=== PATIENT | male | born 1955 ===

== ENCOUNTER 2021-04-08 08:30 | Inpatient (IN) | payer OTHER ==
[2021-04-08] MEDS ORDERED: TOPROL XL100 M1 (10:00)
[2021-04-08] MEDS ORDERED: GLIMEPIRIDE1 MG (10:01)
[2021-04-08] MEDS ORDERED: FAMOTIDINE PO (10:01)
[2021-04-08] MEDS ORDERED: PROCARDIA PO (10:01)
[2021-04-14] MEDS ORDERED: NIFEDIPINE ER30 M1 (08:03)
[2021-04-14] MEDS ORDERED: PANTOPRAZOLE SO40 MG (08:03)
[2021-04-14] MEDS ORDERED: ROSUVASTATIN CAL5 MG (08:03)
[2021-04-14] MEDS ORDERED: FAMOTIDINE20 MG (08:03)
[2021-04-14] MEDS ORDERED: CANDESARTAN CILE8 M1 (08:03)
[2021-04-14] MEDS ORDERED: DICLOFENAC POTA50 MG (08:03)
[2021-04-14] MEDS ORDERED: COLACE100 MG PO (09:47)
[2021-04-14] MEDS ORDERED: MEDROLPACK PO (09:47)
[2021-04-14] MEDS ORDERED: PERCOCET 5-3251 EACH PO (09:47)
[2021-04-14] MEDS ORDERED: NEURONTIN800 MG PO (09:47)
[2021-04-14] MEDS ORDERED: AMOX-CLAV 875-1 EACH PO (09:47)
== END 2021-04-15 16:07 | disposition home or self-care (01) | DRG 455 ==
LOC: PED 04-14 06:35 → O/R 04-14 06:35 → SURH 04-14 08:30 → PED 04-14 12:28
PROVIDERS: ADMIT Orthopaedic Surgery Orthopaedic Surgery of the Spine; ATTEND Orthopaedic Surgery Orthopaedic Surgery of the Spine
PROC: 0SG00J1 Fusion of Lumbar Vertebral Joint with Synthetic Substitute, Posterior Approach, Posterior Column, Open Approach (ICD-10-PCS; 2021-04-14)
PROC: 0QB30ZZ Excision of Left Pelvic Bone, Open Approach (ICD-10-PCS; 2021-04-14)
PROC: 0SB20ZZ Excision of Lumbar Vertebral Disc, Open Approach (ICD-10-PCS; 2021-04-14)
PROC: 07DR0ZZ Extraction of Iliac Bone Marrow, Open Approach (ICD-10-PCS; 2021-04-14)
PROC: 0SG00A0 Fusion of Lumbar Vertebral Joint with Interbody Fusion Device, Anterior Approach, Anterior Column, Open Approach (ICD-10-PCS; principal; 2021-04-14 10:00)
DX: M48.062 Spinal stenosis, lumbar region with neurogenic claudication (principal); M47.896 Other spondylosis, lumbar region; M51.36 Other intervertebral disc degeneration, lumbar region; E11.9 Type 2 diabetes mellitus without complications; I10 Essential (primary) hypertension